=== PATIENT | female | born 1960 | race Asian ===

== ENCOUNTER 2017-10-19 13:21 | Outpatient (CLI) | payer BC | END 2017-10-19 13:22 | disposition home or self-care (01) | LOC: BICMAMMO 13:21 | PROVIDERS: ATTEND Internal Medicine | DX: Z12.31 Encounter for screening mammogram for malignant neoplasm of breast (principal) | CPT/HCPCS: 77063; 77067 ==

== ENCOUNTER 2018-12-18 14:15 | Outpatient (CLI) | payer BC ==
--- NOTE | 2018-12-18 16:35 | MMO ---
Bilateral MAMMO Bilat Screen [facility]. CLINICAL HISTORY: Patient is 58 years old and is seen for screening. The patient has no family history of breast cancer. The patient has no personal history of cancer. VIEWS: The views performed were: bilateral craniocaudal with tomosynthesis and bilateral mediolateral oblique with tomosynthesis. FILMS COMPARED: The present examination has been compared to prior imaging studies performed at [facility] on 07/30/2014, 08/21/2015, 10/13/2016 and 10/19/2017. MAMMOGRAM FINDINGS: There are scattered fibroglandular densities. There are stable calcifications seen in both breasts. There are no suspicious masses, suspicious calcifications, or new areas of architectural distortion. IMPRESSION: THERE IS NO MAMMOGRAPHIC EVIDENCE OF MALIGNANCY. A ROUTINE FOLLOW-UP MAMMOGRAM IN 1 YEAR IS RECOMMENDED. THE RESULTS OF THIS EXAM WERE SENT TO THE PATIENT. ACR BI-RADS Category 2 - Benign finding MAMMOGRAPHY NOTE: 1. A negative mammogram report should not delay a biopsy if a dominant of clinically suspicious mass is present. 2. Approximately 10% to 15% of breast cancers are not detected by mammography. 3. Adenosis and dense breasts may obscure an underlying neoplasm. Reported by: SOCRATES DAY MD Electonically Signed: [id number]
== END 2018-12-18 14:16 | disposition home or self-care (01) ==
LOC: BICMAMMO 14:15
PROVIDERS: ATTEND Obstetrics & Gynecology
DX: Z12.31 Encounter for screening mammogram for malignant neoplasm of breast (principal)
CPT/HCPCS: 77063; 77067

== ENCOUNTER 2019-01-15 15:46 | Outpatient (CLI) | payer BC ==
--- NOTE | 2019-01-15 16:29 | BD ---
Exam: DEXA Bone Density 01/15/19 INDICATION: Age-related osteoporosis without current pathologic fracture. FINDINGS: Lumbar Spine: BMD (g/cm2) T-SCORE Z-SCORE L1 0.830 -1.5 -0.5 L2 0.860 -1.5 -0.4 L3 0.825 -2.4 -1.2 L4 0.850 -1.9 -0.7 L1-L4 0.842 -1.9 -0.7 Left Femoral Neck: 0.646 -1.8 -0.7 Total Left Femur: 0.856 -0.7 0.0 The WHO fracture risk assessment tool (FRAX) estimates ten year fracture risk for a major osteoporoti c fracture for this patient is 7.4%, for hip fracture is 0.8%. Impression: Based on WHO criteria, the patient's bone mineral density is considered osteopenic. The patient is at moderate risk for fracture. POS: OFF
== END 2019-01-15 15:47 | disposition home or self-care (01) ==
LOC: BICMAMMO 15:46
PROVIDERS: ATTEND Internal Medicine Rheumatology
DX: M81.0 Age-related osteoporosis without current pathological fracture (principal); M85.89 Other specified disorders of bone density and structure, multiple sites
CPT/HCPCS: 77080

== ENCOUNTER 2020-07-14 15:10 | Outpatient (CLI) | payer BC | END 2020-07-14 15:11 | disposition home or self-care (01) | LOC: BICMAMMO 15:10 | PROVIDERS: ATTEND Obstetrics & Gynecology | DX: Z12.31 Encounter for screening mammogram for malignant neoplasm of breast (principal) | CPT/HCPCS: 77063; 77067 ==

== ENCOUNTER 2021-04-21 13:20 | Outpatient (CLI) | payer BC | END 2021-04-21 13:21 | disposition home or self-care (01) | LOC: BICMAMMO 13:20 | PROVIDERS: ATTEND Internal Medicine Rheumatology | DX: M81.0 Age-related osteoporosis without current pathological fracture (principal); M85.89 Other specified disorders of bone density and structure, multiple sites | CPT/HCPCS: 77080 ==

== ENCOUNTER 2021-10-20 13:31 | Outpatient (CLI) | payer BC | END 2021-10-20 13:32 | disposition home or self-care (01) | LOC: BICMAMMO 13:31 | PROVIDERS: ATTEND Obstetrics & Gynecology | DX: Z12.31 Encounter for screening mammogram for malignant neoplasm of breast (principal) | CPT/HCPCS: 77063; 77067 ==

== ENCOUNTER 2022-06-29 15:09 | Outpatient (CLI) | payer BC | END 2022-06-29 15:10 | disposition home or self-care (01) | LOC: BICMAMMO 15:09 | PROVIDERS: ATTEND Internal Medicine Rheumatology | DX: M81.0 Age-related osteoporosis without current pathological fracture (principal) | CPT/HCPCS: 77080 ==

== ENCOUNTER 2023-01-25 09:52 | Outpatient (CLI) | payer BC | END 2023-01-25 09:53 | disposition home or self-care (01) | LOC: BICMAMMO 09:52 | PROVIDERS: ATTEND Obstetrics & Gynecology | DX: Z12.31 Encounter for screening mammogram for malignant neoplasm of breast (principal) | CPT/HCPCS: 77063; 77067 ==

== ENCOUNTER 2024-02-23 13:12 | Outpatient (CLI) | payer BC | END 2024-02-23 13:13 | disposition home or self-care (01) | LOC: BICMAMMO 13:12 | PROVIDERS: ATTEND Obstetrics & Gynecology | DX: Z12.31 Encounter for screening mammogram for malignant neoplasm of breast (principal) | CPT/HCPCS: 77063; 77067 ==

== ENCOUNTER 2025-03-21 12:20 | Outpatient (CLI) | payer BC | END 2025-03-21 12:21 | disposition home or self-care (01) | LOC: BICMAMMO 12:20 | PROVIDERS: ATTEND Obstetrics & Gynecology | DX: Z12.31 Encounter for screening mammogram for malignant neoplasm of breast (principal) | CPT/HCPCS: 77063; 77067 ==